=== PATIENT | female | born 1950 | race Caucasian/White ===

== ENCOUNTER 2016-06-24 10:37 | Emergency (ER) | payer MEDICARE, OTHER ==
[2016-06-24 11:07] VITALS: BP 137/97
--- OUTSIDE RECORDS SUMMARY | 2016-06-24 11:15 | XMS REPORT | Continuity of Care Document ---
:1950 Author Organization [facility] ([facility]) Address [address] [place] [address] Phone [phone] Care Team Providers Name Role Phone Jitendra Kline Primary Care Provider [phone] Source Comments This disclosure is being made pursuant to the Care Everywhere program, applicable federal and state laws, and may not contain all informaitonavailable regarding this patient.[facility] ([facility]) Active Allergies and Adverse Reactions Allergen Noted Date Severity Reactions Comments Codeine Stomach Pain,Malaise Sulfadoxine Upper Airway Edema,Respiratory Distress Current Medications Prescription Sig. Disp. Refills Start Date End Date Status metformin (GLUCOPHAGE) take 1,000 mg by Active 1,000 mg tablet mouth 2 times daily. nabumetone (RELAFEN) take 500 mg by mouth Active 500 mg tablet 2 times daily. potassium chloride SA take 10 mEq by mouth Active (K-DUR, KLOR-CON M10) 2 times daily. 10 mEq tablet atenolol (TENORMIN) 25 take 25 mg by mouth Active mg tablet daily. aspirin 81 mg tablet take 81 mg by mouth Active daily. rosuvastatin (CRESTOR) take 20 mg by mouth Active 20 mg tablet daily. omeprazole (PRILOSEC) take 20 mg by mouth Active 20 mg extended release daily. capsule pioglitazone (ACTOS) 30 take 30 mg by mouth Active mg tablet daily. hydrocodone-acetaminoph take 1 Tab by mouth Active en (LORTAB) 10-500 mg as needed. per tablet OTHER Blood pressure Active medication unknown name Active Problems Not on file Social History Tobacco Use Types Packs/Day Years Used Date Former Smoker Cigarettes 3 25 Alcohol Use Drinks/Week oz/Week Comments No Last Filed Vital Signs Vital Sign Reading Time Taken Blood Pressure 169/89 06/07/2012 11:29 AM CDT Pulse 64 06/07/2012 11:29 AM CDT Temperature 36.8 C (98.2 F) 06/07/2012 11:29 AM CDT Respiratory Rate - - Height 1.6 m (5' 2.99") 06/07/2012 11:29 AM CDT Weight 133.358 kg (294 lb) 06/07/2012 11:29 AM CDT Body Mass Index 52.09 06/07/2012 11:29 AM CDT Oxygen Saturation - - Plan of Care Health Maintenance Due Date Last Done Comments HCV Screening 1950 Hepatitis B Vaccine (1 of 3 - Primary Series) 1950 Tdap Vaccine 08/08/1959 Lipid Disorder Screening 1966 Td Vaccine 1966 Mammogram 1988 Colonoscopy 1998 Zoster Vaccine 2008 Osteoporosis Screening (DXA Bone Density) 2013 Pneumococcal Vaccine (1 of 2 - PCV13) 2013 Influenza Vaccine: Seasonal (#1) 10/06/2015 Results from Last 3 Months Not on file
[2016-06-24] MEDS ORDERED: PANTOPRAZOLE SODIUM 40 MG in NORMAL SALINE 100 ML IV ONE (11:16)
[2016-06-24] MEDS ORDERED: ALBUTEROL SULFATE/IPRATROPIUM 3 ML NEBU IH ONE ×2 (11:16→11:29)
[2016-06-24 11:25] LABS: Hematocrit 38.2 % (37.0-47.0); Hemoglobin 12.7 gm/dL (12.5-16.0); Mean Cell Volume 87.8 fl (78-100); Mean Corpuscular Hemoglobin 29.2 pg (27-31); Mean Corpuscular Hgb Conc 33.2 g/dl (32-36); Mean Platelet Volume 11.3 fl (6.0-9.5); Neutrophil # 3.9 K/mm3 (1.3-6.0); Neutrophil % 57.3 % (42-75.0); Platelet Count 178 K/mm3 (150-450); Red Blood Count 4.35 M/mm3 (4.2-5.4); Red Cell Distribution Width 13.7 % (11.5-14.0); White Blood Count 6.9 K/mm3 (4.0-10.5)
[2016-06-24] MEDS ORDERED: PANTOPRAZOLE SODIUM 40 MG/100 ML PIGGYBACK IV ONE (11:29)
[2016-06-24 11:35] LABS: Prothrombin Time (Patient) 10.3 Seconds (9.4-11.4)
[2016-06-24 11:36] LABS: INR 0.99 INR (0.90-1.10)
--- NOTE | 2016-06-24 11:41 | ERNOTE ---
Date of Service: 06/24/16 Time Seen by Provider: 06/24/16 11:11 Stated Complaint: COUGH Presenting Symptoms:: cough, other - SOB Source: patient Exam Limitations: no limitations Immunizations: IMMUNIZATION HX Immunizations Up to Date Yes History of Influenza Vaccine Yes Hx Pneumococcal Vaccination Yes Allergies/Adverse Reactions: Allergies codeine [Codeine] Allergy (Unknown, Verified 06/24/16 11:07) Sulfa (Sulfonamide Antibiotics) [Sulfa(Sulfonamide Antibiotics)] Allergy ( Unknown, Verified 06/24/16 11:07) sulfamethoxazole [From Bactrim] Allergy (Unknown, Verified 06/24/16 11:07) trimethoprim [From Bactrim] Allergy (Unknown, Verified 06/24/16 11:07) Iodinated Contrast Media - Oral and [Iodinated Contrast Media - IV Dye] Allergy (Verified 06/24/16 11:07) Hives Iodine and Iodide Containing Produc Allergy (Verified 06/24/16 11:07) Hives Home Medications: HOME MEDICATIONS Aspirin 81 mg PO DAILY 08/03/12 [Last Taken Unknown] Atenolol 25 mg pe PO DAILY 08/03/12 [Last Taken Unknown] Byetta 08/03/12 [Last Taken Unknown] Crestor 20 mg PO DAILY 08/03/12 [Last Taken Unknown] Effexor Xr 150 mg PO DAILY 08/03/12 [Last Taken Unknown] Flonase 08/03/12 [Last Taken Unknown] Prilosec 20 mg PO DAILY 08/03/12 [Last Taken Unknown] Bumetanide 2 mg PO DAILY 07/01/14 [Last Taken Unknown] Losartan Potassium [Cozaar] 100 mg PO DAILY 07/01/14 [Last Taken Unknown] Meclizine HCl 25 mg PO DAILY 07/01/14 [Last Taken Unknown] Potassium Chloride [Klor-Con M10] 10 meq PO DAILY 07/01/14 [Last Taken Unknown] Ciprofloxacin HCl [Cipro] 500 mg PO BID #10 tablet 01/10/16 [Last Taken Unknown] - History of Present Ilness Narrative: Patient reported that she noticed and increase on her acid sensation going up and down her mid chest area. Patient has been coughing since this morning. Patient thinks that she could had aspirated. Patient reported some chest pain associated with the coughing. Timing: constant Severity: moderate Frequency/Possible Cause: Reports: no prior episodes, other - Patient thinks that her acid reflux got worse Modifying Factors - Improves: Reports: nothing Modifying Factors - Worsens: Reports: coughing Associated Symptoms: Reports: chest pain/soreness, cough, shortness of breath. Denies: wheezing, facial pain, nasal congestion, nasal drainage, dizziness, lightheadedness, earache, sore throat, fever/chills Prior Treatment: Denies: recently seen Review of Systems - Review of Systems Constitutional: Absent: fever, chills, malaise EYE: Present: no symptoms reported ENT: Present: no symptoms reported Respiratory: Present: shortness of breath, cough, wheezing. Absent: stridor Cardiology: Present: chest pain. Absent: palpitations, syncope, edema, claudication Gastrointestinal/Abdominal: Present: no symptoms reported Genitourinary: Present: no symptoms reported Musculoskeletal: Present: no symptoms reported Skin: Present: no symptoms reported Neurological: Present: no symptoms reported Endocrine: Present: no symptoms reported Hematologic/Lymphatic: Present: no symptoms reported Psych: Present: no symptoms reported All Other Systems: All systems neg except as marked - Patient's Past Medical History Patient History - Medical: Anxiety, Arthritis, Chronic Pain, Diabetes Type 2, Depression, Fibromyalgia, GERD, Headache, Hypothyroidism, Obesity, Osteoarthritis, Other Patient History - Cardiac/Respiratory: Asthma, Bronchitis Patient History - Cancer: No Hx of Cancer Patient History - Surgical Procedures: Cholecystectomy, EGD, Hysterectomy, Other Patient History - Other: None - Social History Living Situations: home Psych History: Hx of Depression Smoking Status: Former smoker Have you smoked in the past 12 months: No Alcohol Use: none Drug Use: none - Immunizations Immunizations Up to Date: Yes Hx Pneumococcal Vaccination: Yes History of Influenza Vaccine: Yes Physical Exam - Physical Exam General Appearance: Present: wd/wn, alert, moderate distress, obese Eye Exam: Normal inspection: bilateral, PERRL: bilateral, EOMI: bilateral Ears, Nose, Throat: Present: normal ENT inspection, normal pharynx Neck: Present: normal inspection, nontender Respiratory: Present: chest tenderness, respiratory distress - mild, expiration (prolonged), rhonchi, wheezing Cardiovascular/Chest: Present: normal peripheral pulses Gastrointestinal/Abdominal: Present: normal bowel sounds, nontender, nondistended, soft, no organomegaly Extremity Exam: Present: normal inspection, non-tender, normal range of motion, no edema Neurological Exam: Present: alert, oriented, normal mood/affect, no motor/ sensory deficits Skin Exam: Present: normal color, warm/dry Lymphatic Exam: Present: no adenopathy ED Progress - Vital Signs Vital Signs: Vital Signs 06/24/16 11:02 Temperature 36.2 C L Pulse Rate 74 Respiratory 22 H Rate Blood Pressure 137/97 O2 Sat by Pulse 95 Oximetry - EKG EKG: NSR EKG read: Interp. by me EKG Comments: No ST elevation, HR: 71, S. Arrhythmia - Progress/Reassessment Chief Complaint: Cough Departure - Departure Clinical Impression: Bronchospasm, acute, Coughing GERD (gastroesophageal reflux disease) Qualifiers: Esophagitis presence: esophagitis presence not specified Qualified Code(s): K21.9 - Gastro-esophageal reflux disease without esophagitis Disposition: Home self-care Condition: Stable Instructions: Heartburn, Bronchospasm, Adult Referrals: Simón Amado MD [Primary Care Provider] -
[2016-06-24 11:42] LABS: ALT 38 U/L (19-67); AST 39 U/L (0-48); Albumin * 3.8 gm/dl (3.4-5.0); Alkaline Phosphatase * 76 U/L (50-170); Anion Gap 12.2 mmol/L (6.8-13.8); Bilirubin, Total 0.4 mg/dL (0.0-1.1); Blood Urea Nitrogen 18 mg/dL (3-23); Ca. Corrected For Albumin 9.2 mg/dL (8.4-10.2); Calcium * 9.4 mg/dL (7.9-10.9); Carbon Dioxide 29.4 mmol/L (24-32.6); Chloride 103 mmol/L (97-106); Glucose * 191 mg/dL (70-110); Potassium 4.6 mmol/L (3.4-4.6); Sodium 140 mmol/L (132-142); Total Protein 7.1 gm/dL (6.2-8.2); Troponin I Less than 0.017 ng/ml (0.00-0.10)
== END 2016-06-24 12:51 | disposition home or self-care (01) ==
LOC: ER 10:37
DX: J98.01 Acute bronchospasm (principal); R05 Cough; Z87.891 Personal history of nicotine dependence; K21.9 Gastro-esophageal reflux disease without esophagitis; R07.9 Chest pain, unspecified

== ENCOUNTER 2016-09-30 09:55 | Day surgery (SDC) | payer MEDICARE, OTHER ==
--- NOTE | 2016-09-30 12:00 | OR ---
Anesthesia Pre Procedure Eval Pre Procedure Evaluation: Last Vital Signs Temp 36.3 C L 09/30/16 10:03 Pulse 67 09/30/16 10:03 Resp 18 09/30/16 10:03 BP 149/89 09/30/16 10:03 Pulse Ox 97 09/30/16 10:03 PRE PROCEDURE EVALUATION:: DATE: PRE PROCEDURE EVALUATION:: DATE: 09/30/2016 TIME: 11:30 INDICATIONS: Radicular low back pain. Multilevel bulging disc. PAST MEDICAL HISTORY: No previous epidural steroid injections. EXAM: Lungs clear and equal. Heart rate regular. Patient complains of low back pain that radiates into her hips and legs bilaterally. ASSESSMENT OF MEDICAL STATUS: Procedure risks and benefits were explained to and accepted by the patient. No contraindication to epidural steroid injection. PLANNED PROCEDURE : Fluoroscopy-guided epidural steroid injection at L4 5. Home Medications: HOME MEDICATIONS Losartan Potassium [Cozaar] 100 mg PO DAILY 07/01/14 [Last Taken Unknown] Potassium Chloride [Klor-Con M10] 10 meq PO DAILY 07/01/14 [Last Taken Unknown] Albuterol Sulfate [Albuterol Sulfate 2.5 MG/0.5ML] 1 vial IH Q4H PRN 09/29/16 [ Last Taken Unknown] Aspirin [Aspirin Enteric Coated] 81 mg PO DAILY 09/29/16 [Last Taken Unknown] Atenolol [Tenormin] 25 mg PO DAILY 09/29/16 [Last Taken Unknown] Blood-Glucose Meter [Blood Glucose Monitoring] 1 each MC BID 09/29/16 [Last Taken Unknown] Calcium Carbonate [[id number]] 500 mg PO TID 09/29/16 [Last Taken Unknown] Clotrimazole/Betamet Diprop [Lotrisone Cream] 1 appl TP BID 09/29/16 [Last Taken Unknown] Divalproex Sodium [Depakote ER] 500 mg PO HS PRN 09/29/16 [Last Taken Unknown] Ergocalciferol (Vitamin D2) [Vitamin D2] 50,000 unit PO 2XW 09/29/16 [Last Taken Unknown] Exenatide [Byetta] 10 mcg SQ BID 09/29/16 [Last Taken Unknown] Fluticasone Propionate [Flonase] 2 spray NS DAILY 09/29/16 [Last Taken Unknown] Gabapentin [Neurontin] 300 mg PO TID 09/29/16 [Last Taken Unknown] HYDROcodone/ACETAMINOPHEN [[place] 5-325 Tablet] 1 tab PO Q6H PRN 09/29/16 [Last Taken Unknown] Insulin Detemir [Levemir] 28 unit SQ BID 09/29/16 [Last Taken Unknown] Levothyroxine Sodium [Synthroid] 25 mcg PO DAILY 09/29/16 [Last Taken Unknown] Melatonin/Pyridoxine HCl (B6) [Melatonin 5 mg Tablet] 2 each PO DAILY 09/29/16 [ Last Taken Unknown] Nabumetone 750 mg PO BID 09/29/16 [Last Taken Unknown] Nitroglycerin [Nitrostat] 0.4 mg SL [id number] PRN 09/29/16 [Last Taken Unknown] Omeprazole 40 mg PO DAILY 09/29/16 [Last Taken Unknown] Rosuvastatin Calcium [Crestor] 20 mg PO DAILY 09/29/16 [Last Taken Unknown] Venlafaxine HCl [Effexor Xr] 150 mg PO DAILY 09/29/16 [Last Taken Unknown] glyBURIDE [Micronase] 10 mg PO BIDAC 09/29/16 [Last Taken Unknown] metFORMIN HCL [Glucophage] 1,000 mg PO BIDWM 09/29/16 [Last Taken Unknown]
[2016-09-30] MEDS ORDERED: IOPAMIDOL 20 ML VIAL IJ ONE (12:10)
[2016-09-30] MEDS ORDERED: LIDOCAINE HCL/PF 5 ML VIAL IJ ONE (12:15)
[2016-09-30] MEDS ORDERED: DEXAMETHASONE SOD PHOSPHATE 10 MG/ML VIAL IJ ONE (12:15)
--- NOTE | 2016-09-30 12:32 | OR ---
Anesthesia Procedure Note - Anesthesia Procedure Note Narrative: Vital Signs - Last Taken Temp 36.3 C L 09/30/16 10:03 Pulse 67 09/30/16 10:03 Resp 18 09/30/16 10:03 BP 149/89 09/30/16 10:03 Pulse Ox 97 09/30/16 10:03 09/30/16 12:28 ANESTHESIA PROCEDURE NOTE Date of Procedure: 09/30/2016 Time of procedure: 12:15. Performed by: Robbie Currie CRNA Curriculum And Assessment Director: None. Preprocedure diagnosis: Radicular low back pain. Multilevel bulging disc.. Post procedure diagnosis: Same. Procedure: Epidural Steroid Injection at L5-S1. Indications: Radicular low back pain. Findings: See below. Details of the procedure: The patient was brought back to operating room #4. The patient was then placed in the prone position. Back was prepped with DuraPrep. Patient was then draped in sterile fashion. Lidocaine 1% was infiltrated to the skin and subcutaneous tissues at the level of the L5-S1 interspace. The epidural space was identified using a 20-gauge Tuohy needle with [id number] technique and fluoroscopic guidance. A total of 3 mL of Isovue-200 contrast dye was injected in the first the lateral and AP positions to confirm needle placement. Dexamethasone 10 mg + 5 mL of 1% preservative-free lidocaine was administered to the epidural space after negative aspiration for blood and CSF. The Tuohy needle was removed intact. A Band-Aid was applied to the patient's back. The patient was then placed in a supine position for 5 minutes before returning to the ambulatory surgical unit. Total fluoroscopy time 27.2 seconds. Total dosage 19.91 m/gy. EBL: Minimal. Fluids: N/A. Specimen: N/A. Post procedure condition: The patient tolerated the procedure well. No complications were noted. Thank you for this consultation. Robbie Currie CRNA
[2016-09-30 13:01] VITALS: BP 146/91
== END 2016-09-30 09:56 | disposition home or self-care (01) ==
LOC: AMB 09:55
PROVIDERS: ATTEND Allergy & Immunology
PROC: 3E0S3BZ Introduction of Anesthetic Agent into Epidural Space, Percutaneous Approach (ICD-10-PCS; 2016-09-30)
PROC: 3E0S33Z Introduction of Anti-inflammatory into Epidural Space, Percutaneous Approach (ICD-10-PCS; principal; 2016-09-30 11:00)
DX: M51.26 Other intervertebral disc displacement, lumbar region (principal); Z68.42 Body mass index [BMI] 45.0-49.9, adult